=== PATIENT | male | born 1995 | race Caucasian/White ===

== ENCOUNTER 2018-08-23 15:07 | Inpatient (IN) | payer OTHER, MEDICAID ==
--- NOTE | 2018-08-23 16:26 | ED ---
Psychiatric Complaint - HPI Summary HPI Summary: A 23 y/o male presents to [facility] with a chief complaint of SI since yesterday. The patient reports that he drank EtOH with the intent of suicide and was planning on taking pills but didn't. He has a Hx of depression and has had several suicide attempts since 16 y/o. He reports that his boss sent him home today and then he went to mental health at [place] when he was referred to the ED for a MHE. - History Of Current Complaint Chief Complaint: EDSuicidal Time Seen by Provider: 08/23/18 16:01 Hx Obtained From: Patient Onset/Duration: Sudden Onset, Lasting Days, Still Present Timing: Constant Severity Initially: Mild Severity Currently: Mild Character: Depressed Aggravating Factor(s): Nothing Alleviating Factor(s): Nothing Associated Signs And Symptoms: Positive: Negative Related History: Positive For: Prior Psychiatric Issues Has Suicidal: Reports: Thoughts, With A Plan, Demonstrates Gesture, Has Prior Attempt(s) Has Homicidal: Denies: Thoughts Ingestion History: Type/Name Of Drug - EtOH - Allergies/Home Medications Allergies/Adverse Reactions: Allergies Allergy/AdvReac Type Severity Reaction Status Date / Time No Known Allergies Allergy Verified 08/23/18 15:17 PMH/Surg Hx/FS Hx/Imm Hx Infectious Disease History: Denies: Traveled Outside the [place] in Last 30 Days - Family History Known Family History: Negative: Blood Disorder - Social History Lives: With Family Alcohol Use: Binge use [employer] BRUSHER in suicide attempt Hx Substance Use: No Review of Systems Negative: Fever Psychological: Other - positive: SI Positive: Other - negative: HI All Other Systems Reviewed And Are Negative: Yes Physical Exam - Summary Physical Exam Summary: Appearance: Well appearing, no pain distress Skin: warm, dry, reflects adequate perfusion Head/face: normal Eyes: EOMI, RODNEY ENT: normal Neck: supple, non-tender Respiratory: CTA, breath sounds present Cardiovascular: RRR, pulses symmetrical Abdomen: non-tender, soft Musculoskeletal: normal, strength/ROM intact Neuro: normal, sensory motor intact, A&Ox3 Psych: Depressed affect Triage Information Reviewed: Yes Vital Signs On Initial Exam: Initial Vitals Temp Pulse Resp BP Pulse Ox 98.7 F 107 16 144/88 98 08/23/18 15:09 08/23/18 15:09 08/23/18 15:09 08/23/18 15:09 08/23/18 15:09 Vital Signs Reviewed: Yes Diagnostics - Vital Signs Vital Signs Temp Pulse Resp BP Pulse Ox 08/23/18 15:09 98.7 F 107 16 144/88 98 - Laboratory Result Diagrams: 08/23/18 16:27 08/23/18 16:27 Lab Statement: Any lab studies that have been ordered have been reviewed, and results considered in the medical decision making process. Re-Evaluation - Re-Evaluation First Eval Re-Evaluation Time: 19:40 Change: Unchanged Comment: Pt cleared for MHE. Course/Dx - Course Course Of Treatment: A 23 y/o male presents to [facility] with a chief complaint of SI since yesterday. The patient reports that he drank EtOH with the intent of suicide and was planning on taking pills but didn't. The physical exam revealed that the patient has a depressed affect. Bloodwork, chemistry, urines and toxicology obtained. The patient has been cleared for MHE. The patient will be signed out to Dr. Hui at 22:00 08/23/18 pending MHE. - Differential Dx/Clinical Impression Differential Diagnosis/HQI/PQRI: Positive: Depression, Suicidal Ideation Provider Diagnosis: Depression, Suicidal ideation Discharge - Sign-Out/Discharge Documenting (check all that apply): Sign-Out Patient Signing out patient TO: Tian Hui - pending MHE Patient Received Moderate/Deep Sedation with Procedure: No - Discharge Plan Condition: Stable Referrals: Edmundo KENT,Kendrick Desai [Primary Care Provider] - - Billing Disposition and Condition Condition: STABLE - Attestation Statements Document Initiated by Scribe: Yes Documenting Scribe: Ron Lemus Provider For Whom Mushtaq is Documenting (Include Credential): Alejandro Hennessy MD Scribe Attestation: Fatmata, Ron Lemus, scribed for Alejandro Hennessy MD on 08/23/18 at 2144. Scribe Documentation Reviewed: Yes Provider Attestation: The documentation as recorded by the Ron choi accurately reflects the service I personally performed and the decisions made by me, Alejandro Hennessy MD Status of Scribe Document: Viewed
[2018-08-23 16:30] LABS: Urine Appearance Cloudy; Urine Bilirubin Negative (Negative); Urine Blood Negative (Negative); Urine Color Yellow; Urine Glucose Negative (Negative); Urine Ketones Trace (Negative); Urine Nitrite Negative (Negative); Urine Protein Negative (Negative); Urine Urobilinogen Positive (Negative)
[2018-08-23 16:37] LABS: ABS Basophils 0.1 10^3/ul (0-0.2); ABS Eosinophils 0.3 10^3/ul (0-0.6); ABS Lymphocytes 2.8 10^3/ul (1.0-4.8); ABS Monocytes 0.8 10^3/ul (0-0.8); ABS Neutrophils 6.1 10^3/ul (1.5-7.7); ABS Nucleated RBC 0 10^3/ul; Eosinophil % 3.1 %; Hematocrit 45 % (36-46); Hemoglobin 15.8 g/dL (14.0-18.0); Mean Corpuscular HGB Conc 35 g/dL (31-36); Mean Corpuscular Hemoglobin 33 pg (27-31); Mean Corpuscular Volume 95 fL (80-94); Mean Platelet Volume 9.2 fL (7.4-10.4); Nucleated Red Blood Cells % 0.1; Platelet Count 151 10^3/uL (150-450); Red Blood Count 4.77 10^6 /uL (4.18-5.48); Red Cell Distribution Width 13 % (10.5-15); White Blood Count 10.1 10^3/uL (3.5-10.8)
[2018-08-23 16:45] LABS: Urine Benzodiazepine Screen None Detected (None Detect); Urine Opiates Screen None Detected (None Detect)
[2018-08-23 16:51] LABS: ALT 14 U/L (7-52); AST 13 U/L (13-39); Albumin 4.1 g/dL (3.2-5.2); Albumin/Globulin Ratio 1.5 (1-3); Alkaline Phosphatase 58 U/L (34-104); Anion Gap 7 mmol/L (2-11); BUN/Creatinine Ratio 19.4 (8-20); Blood Urea Nitrogen 19 mg/dL (6-24); CO2 Carbon Dioxide 27 mmol/L (22-32); Calcium 8.8 mg/dL (8.6-10.3); Chloride 108 mmol/L (101-111); EGFR African American 116.8 (>60); EGFR Non-African American 96.6 (>60); Globulin 2.8 g/dL (2-4); Glucose 106 mg/dL (70-100); Potassium 4.1 mmol/L (3.5-5.0); Sodium 142 mmol/L (135-145); Total Protein 6.9 g/dL (6.4-8.9)
[2018-08-23 17:04] LABS: Acetaminophen < 15 mcg/mL; Alcohol < 10 mg/dL (<10); Salicylate < 2.50 mg/dL (<30)
[2018-08-23 17:18] LABS: TSH (Thyroid Stimulating Horm) 0.82 mcIU/mL (0.34-5.60)
--- NOTE | 2018-08-23 22:09 | ED ---
Progress - Progress Note Progress Note: This patient is signed out from Dr. Hennessy at 2200 awaiting mental health evaluation. - Consult/PCP Time Called: 19:50 Course/Dx - Course Course Of Treatment: Mental health yeast washer informs of Dr. Young's recomentation to admit the patient at 2240. - Diagnoses Provider Diagnoses: Substance abuse, Mood disorder Discharge - Sign-Out/Discharge Documenting (check all that apply): Patient Departure - admit Patient Received Moderate/Deep Sedation with Procedure: No - Discharge Plan Condition: Stable [place] [place] Disposition and Condition Condition: STABLE Disposition[place] [facility] [place] Attestation Statements Document Initiated by Scribe: Yes Documenting Scribe: Umu Rosales Provider For Whom Mushtaq is Documenting (Include Credential): Tian Hui MD Scribe Attestation: Umu Avilez, scribed for Tian Hui MD on 08/24/18 at 0328. Scribe Documentation Reviewed: Yes Provider Attestation: The documentation as recorded by the Umu choi accurately reflects the service I personally performed and the decisions made by Tian nassar MD Status of Scribe Document: Viewed
[2018-08-24] MEDS ORDERED: Acetaminophen TAB* 325 MG PO PRN (01:06)
[2018-08-24] MEDS ORDERED: Al Hydrox/Mg Hydrox/Simet LIQ* 30 ML UDC PO PRN (01:06)
[2018-08-24] MEDS: Nicotine PATCH 21 MG/24 HR* PATCH TRANSDERM SCH (09:36)
[2018-08-24] MEDS: Vitamin THERAPEUTIC TAB PO SCH (09:36)
[2018-08-24] MEDS ORDERED: hydrOXYzine HCL TAB* 50 MG PO PRN (12:46)
--- NOTE | 2018-08-24 13:52 | HP ---
HISTORY AND PHYSICAL: DATE OF ADMISSION: 08/23/18 PROVIDER: Nemo Davis NP, in Psychiatry. SUPERVISING PHYSICIAN: Ildefonso Lizarraga MD* (dictated by Nemo Davis NP). JUSTIFICATION FOR ADMISSION: The patient is in need of 24-hour supervision and care secondary to suicidal ideation and suicide attempt interrupted. CHIEF COMPLAINT: "Something in my head just snapped, I need to get away from everything." HISTORY OF PRESENT ILLNESS: The patient is a 23-year-old single white male with a history of depression and substance abuse, who arrives, brought in by private car and is here on a voluntary status following an attempt to end his life by drinking a significant amount of alcohol and taking trazodone. He fell asleep before he could take the trazodone. Francisco states that he needs to get away from everything. He cares for his mother. His friends are not attentive to his needs. His family is not helping him and thus he feels like he has no support system. He has looked to others to help him with his own troubles, but those others are too busy. He is employed at [employer] and his boss asked him the day after he had attempted to end his life if he was doing alright. When Francisco explained what happened, his boss told him to go to the emergency room, after which point he was admitted to the [facility]. He is having trouble sleeping. He is not interested in much. He feels guilty for simply being alive. His energy is low. He cannot concentrate and he has suicidal ideation. He has attempted 7 times in his life. PAST PSYCHIATRIC HISTORY: He was admitted once when he was 16 years old in [place]. He states at that time that was the second time that he attempted to end his life. He took Wellbutrin and Concerta. He states "I and they resuscitated me on the way to [place]." His first attempt at suicide was at 14 years old and that was the day that his parents split up. He states he cut himself at that time. The third time he slit his wrist in 2017. He put a gun in his mouth, but did not pull the trigger. In 2017, he took too much trazodone and alcohol and slept for a long time and this attempt he was going to take the same thing, but take more trazodone and more alcohol. He passed out before he was able to take the trazodone. Previous psychiatric meds include Concerta, Wellbutrin, Prozac. It should be noted that he is also on methamphetamine a significant amount of the time and he smokes marijuana and drinks alcohol. TRAUMA HISTORY: He denies having traumatic background. He does indicate though that he gave himself what sounds like acute stress disorder after taking LSD and being "stuck" in a trip for a month and a half. He states that, that incidence stopped him from socializing and interacting with others and that was quite difficult and bizarre for him. SUBSTANCE ABUSE HISTORY: He does smoke cigarettes. He declines to have nicotine replacement therapy. He drinks alcohol. He uses methamphetamine. He uses marijuana. He has tried treatment in the past, but feels as though it is a waste of time because he is able to maintain a superficial stance and does not share what is truly happening to him or he feels not heard. PAST MEDICAL HISTORY: His primary care doctor is Dr. Wyatt at [facility]. 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 FAMILY HISTORY: Mom has had a cardiac arrest, kidney failure. She is an alcoholic. She is nonadherent to her medication schedule. She is diabetic. She has visiting nurse services once or twice a week for medications, going to the store and taking her to appointments. He has 2 siblings, twin older sisters and he states that they are useless. His mom and he use methamphetamine. Francisco started 3 years ago when he was 20 years old. He smokes it and snorts it, but he does not use needles. Dad lives nearby, but he does not speak to dad very much. Dad kicked out his mom around age 14. SOCIAL HISTORY: He was born nearby to [place]. He lives with his mom. He has 2 sisters who are twins and a dad who lives nearby as well. He denies kar abuse. He graduated from high school and he did start college, but could not finish it as he needed to get a full-time job. He lives with his mother. He is employed at [employer]. He has never been in the . He says his legal problems include speeding tickets and items of that level. REVIEW OF SYSTEMS: Francisco reports feeling alert. He denies shortness of breath, heat or cold intolerance, chest pain or abdominal pain. He denies neurological symptoms. He denies fevers or changes in weight. PHYSICAL EXAMINATION GENERAL APPEARANCE: Well appearing. No pain or distress. VITAL SIGNS: On 08/24/18 at 8:35, temperature was 98.5, pulse 84, respirations 16, O2 sat on room air 100%, blood pressure 126/72. HEENT: Head and face are normal. Eyes: EOMI. PERRL. ENT: Normal. NECK: Supple, nontender. RESPIRATORY: CTA. Breath sounds present. CARDIOVASCULAR: RRR. Pulses symmetrical. ABDOMEN: Nontender, soft. MUSCULOSKELETAL: Normal strength. Range of motion intact. NEURO: Normal sensory. Motor intact. Alert and oriented x4. SKIN: Warm and dry. Reflects adequate perfusion. LABORATORY DATA: Most are within normal limits. Exceptions include MCV high at 95, MCH high at 33, glucose is high at 106. Urine is positive for trace ketones and urobilinogen. Toxicology positive for amphetamines and cannabinoids. There is no alcohol detected at this time. MENTAL STATUS EXAMINATION: This is a somewhat short, obese man with red hair and a red guo, who is calm and cooperative while we are speaking. His speech is of a normal rate, tone, and volume. He is dysthymic. He has a generally superficial affect, but becomes tearful when he is prodded into speaking about what is really bothering him. His thought processes are logical. Thought content is free of delusions. He is not homicidal. He is suicidal, not having a plan on this unit, but still having thoughts. He is not having any hallucinations. His insight is good. His judgment is fair. He is alert and oriented x4. DIAGNOSES: 1. Major depressive disorder. 2. Amphetamine use disorder. 3. Alcohol use disorder. 4. Cannabis use disorder. IMPRESSION: Francisco is a 23-year-old single white man with large number of stressors and a limited ability to manage those stressors. In this context, he has determined that suicide is an adequate answer for these stressors and he has a variety of plans and has already attempted 7 times. PLAN: Francisco is admitted to the adult behavioral unit and placed on q.15-minute checks for his own safety. He is encouraged to participate in supportive milieu , individual, and group therapies. Estimated length of stay is 5 to 7 days. We may obtain an MMPI for diagnostic clarification. We will titrate medications to efficacy and monitor for mood and thought content. Discharge planning will include family involvement and outpatient providers. NEMO DAVIS NP [id number]/CPS #: [id number] SUNDEEP
[2018-08-24] MEDS: Escitalopram * 5 MG TAB PO SCH (15:40)
[2018-08-24] MEDS: Nicotine Patch Removal NOTE PATCH OFF SCH (21:39)
[2018-08-25] MEDS: Nicotine PATCH 21 MG/24 HR* PATCH TRANSDERM SCH ×2 (09:27→09:32)
[2018-08-25] MEDS: Vitamin THERAPEUTIC TAB PO SCH (09:27)
[2018-08-25] MEDS: Escitalopram * 5 MG TAB PO SCH (09:27)
--- NOTE | 2018-08-25 16:27 | PN ---
Subjective - Subjective Date of Service: 08/25/18 Service Type: 38874 Hosp care 25 min moderate complexity Subjective: Agustin attended at least one group and found it very helpful. He was encouraged to attend all activities offered on the unit. He states he feels free from anxiety and he isn't sure why, but wonders if it is because he is away from his stressors. We discussed anxiety level and when it is appropriate to take an antianxiety agent. We discussed the 0-10 scale and how to do a body scan. Agustin was receptive and appeared to try to apply this to his life as well as his drug use. Objective - General Observations Appearance: Neat Appears Stated Age: No - older Stature: Overweight Posture: WNL Eye Contact: Average Behavior/Activity: WNL - Interaction Observations Attitude Towards Examiner: Cooperative Stated Mood: Euthymic Affect: Restricted Speech Pattern/Tone: Clear Thought Process: Coherent Perception: WNL Thought Content: WNL, Preoccupation/Ruminations Thought Process: Lethality: Passive Wish Hallucination Type: None Delusion Type: None - Cognitive Function Orientation: A&O x 4 Level of Consciousness: Awake, Alert, Appropriate Cognition: WNL, Impaired Attention/Concentration Estimated Intelligence: Normal Insight: Difficulty Acknowledging Presence of Psyciatric Problems Judgment Within Normal Limits: No Ability to Make Reasonable Decisions: Mildly Impaired - Medication Compliance Cooperative with Inpatient Medication Regimen: Yes - Group Participation Participates in Group Activities: Partial Assessment - Assessment Merits Inpatient Hospitalization: For Immediate Safety Clinical Impression: Agustin is a 23-year-old white male who comes to the hospital with suicidal ideation related to drug use and outside stressors as well as lack of support that he cannot yet manage effectively. Plan - Plan Treatment Plan: Name: AGUSTIN DOWD Birthdate: 1995 [id number] Start Lexapro 5 mg. Encourage groups. Continue to encourage socialization. Continued Medication Management: Different Medication Medications: Current Medications Acetaminophen (Tylenol Tab*) 650 mg PO Q4H PRN PRN Reason: PAIN or TEMP > 101 F Al Hydrox/Mg Hydrox/Simethicone (Maalox Plus*) 30 ml PO Q4H PRN PRN Reason: INDIGESTION Escitalopram Oxalate (Lexapro *) 5 mg PO DAILY [facility] Last Admin: 08/25/18 09:27 Dose: 5 mg Hydroxyzine HCl (Atarax Tab*) 50 mg PO Q6H PRN PRN Reason: anxiety/agitation Multivitamins (Theragran Tab*) 1 tab PO DAILY [facility] Last Admin: 08/25/18 09:27 Dose: 1 tab Nicotine (Nicotine Patch 21 Mg/24 Hr*) 1 patch TRANSDERM DAILY [facility] Last Admin: 08/25/18 09:32 Dose: Not Given Nicotine Polacrilex (Nicotine Gum*) 2 mg PO Q2H PRN PRN Reason: CRAVING Pharmacy Profile Note (Nicotine Patch Removal Note*) 1 note PATCH OFF 2100 [facility] Last Admin: 08/24/18 21:39 Dose: Not Given - Discharge Plan Discharge Plan: Outpatient Follow Up
[2018-08-25] MEDS: Nicotine Patch Removal NOTE PATCH OFF SCH (19:50)
[2018-08-26] MEDS: Escitalopram * 5 MG TAB PO SCH (10:24)
[2018-08-26] MEDS: Nicotine PATCH 21 MG/24 HR* PATCH TRANSDERM SCH (10:24)
[2018-08-26] MEDS: Vitamin THERAPEUTIC TAB PO SCH (10:24)
[2018-08-26] MEDS: Nicotine GUM* 2 MG PO PRN (13:46)
[2018-08-26] MEDS: Nicotine Patch Removal NOTE PATCH OFF SCH (19:08)
[2018-08-27] MEDS: Vitamin THERAPEUTIC TAB PO SCH (12:10)
[2018-08-27] MEDS: Escitalopram * 5 MG TAB PO SCH (12:10)
[2018-08-27] MEDS: Nicotine PATCH 21 MG/24 HR* PATCH TRANSDERM SCH (12:11)
[2018-08-27] MEDS: Nicotine GUM* 2 MG PO PRN ×2 (12:22→17:32)
--- NOTE | 2018-08-27 17:32 | PN ---
Subjective - Subjective Date of Service: 08/27/18 Service Type: 23777 Hosp care 15 min low complexity Subjective: Agustin says he is having a good day today and active with peers. He talks about all his problems leading up to repeated suicide attempts but hasitant to accept drinking as the main issue. Today denies any SI,HI or psychosis. Objective - General Observations Appearance: Well Groomed Appears Stated Age: Yes Stature: WNL Posture: WNL Eye Contact: Average Behavior/Activity: WNL - Interaction Observations Attitude Towards Examiner: Cooperative Stated Mood: Euthymic Affect: Full Speech Pattern/Tone: Clear, Appropriate, Normal Volume Thought Process: Coherent, Goal Directed Perception: WNL Thought Content: WNL Hallucination Type: None Delusion Type: None - Cognitive Function Orientation: A&O x 4 Level of Consciousness: Awake, Alert Cognition: WNL Estimated Intelligence: Normal Insight: Mostly Blames Others for Problems Judgment Within Normal Limits: No Ability to Make Reasonable Decisions: Serverely Impaired - Medication Compliance Cooperative with Inpatient Medication Regimen: Yes - Group Participation Participates in Group Activities: Yes Assessment - Assessment Merits Inpatient Hospitalization: For Discharge Planning Clinical Impression: Agustin is a 23-year-old white male who comes to the hospital with suicidal ideation related to drug use and outside stressors as well as lack of support that he cannot yet manage effectively. Plan - Plan Treatment Plan: Name: AGUSTIN DOWD Birthdate: 1995 [id number] Start Lexapro 5 mg. Encourage groups. Continue to encourage socialization. Continued Medication Management: Continue Outpt Medication Medications: Current Medications Acetaminophen (Tylenol Tab*) 650 mg PO Q4H PRN PRN Reason: PAIN or TEMP > 101 F Al Hydrox/Mg Hydrox/Simethicone (Maalox Plus*) 30 ml PO Q4H PRN PRN Reason: INDIGESTION Escitalopram Oxalate (Lexapro *) 5 mg PO DAILY [facility] Last Admin: 08/27/18 12:10 Dose: 5 mg Hydroxyzine HCl (Atarax Tab*) 50 mg PO Q6H PRN PRN Reason: anxiety/agitation Multivitamins (Theragran Tab*) 1 tab PO DAILY [facility] Last Admin: 08/27/18 12:10 Dose: 1 tab Nicotine (Nicotine Patch 21 Mg/24 Hr*) 1 patch TRANSDERM DAILY [facility] Last Admin: 08/27/18 12:11 Dose: Not Given Nicotine Polacrilex (Nicotine Gum*) 2 mg PO Q2H PRN PRN Reason: CRAVING Last Admin: 08/27/18 12:22 Dose: 2 mg Pharmacy Profile Note (Nicotine Patch Removal Note*) 1 note PATCH OFF 2100 [facility] Last Admin: 08/26/18 19:08 Dose: Not Given - Discharge Plan Discharge Plan: Drug/Alcohol Rehab
[2018-08-27] MEDS: Nicotine Patch Removal NOTE PATCH OFF SCH (20:56)
[2018-08-28] MEDS: Nicotine PATCH 21 MG/24 HR* PATCH TRANSDERM SCH (12:44)
[2018-08-28] MEDS: Escitalopram * 5 MG TAB PO SCH ×2 (12:44→14:14)
[2018-08-28] MEDS: Vitamin THERAPEUTIC TAB PO SCH (12:44)
[2018-08-28] MEDS: Nicotine GUM* 2 MG PO PRN ×2 (14:14→20:23)
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
[2018-08-28] MEDS: Nicotine Patch Removal NOTE PATCH OFF SCH (20:23)
[2018-08-29] MEDS: Nicotine PATCH 21 MG/24 HR* PATCH TRANSDERM SCH (09:51)
[2018-08-29] MEDS: Escitalopram * 5 MG TAB PO SCH (09:52)
[2018-08-29] MEDS: Vitamin THERAPEUTIC TAB PO SCH (09:52)
[2018-08-29] MEDS: Nicotine GUM* 2 MG PO PRN ×2 (11:40→17:38)
--- NOTE | 2018-08-29 15:05 | PN ---
Subjective - Subjective Date of Service: 08/29/18 Service Type: 70380 Hosp care 35 min high complexity Subjective: I met with Francisco as well as Deanna Haile [employer]ACHINE, and Guzman Amezquita, PhD, to discuss with Francisco his diagnosis and likely future plans. Francisco has attempted suicide at least 7 times since age 14 and he acknowledges that he is behaving in an uncharacteristic fashion for someone who has recently stopped using methamphetamine (we expected him to crash and sleep; rather he is up until 0300 listening to music with other peers and sleeping in the morning). Further, his MMPI reflects impulsivity and hypomania. I am diagnosing him with bipolar 1 disorder and unreservedly starting lithium 300 mg BID to address mood dysregulation and impulsivity. We also had a family meeting with Francisco and his father, Hector. Hector is moved and saddened by his son's distress and is supportive and offers for Francisco to at least temporarily move in with him. Francisco is tearful during the meeting. A lot of information regarding his diagnosis of bipolar 1 disorder is shared as well as logistical information regarding where he will live and where he will get care. We emphasize the need for Francisco to stay a few more days due to his high level of impulsivity (confirmed by the MMPI performed) and the start of lithium , which will be titrated over a few days. Objective - General Observations Appearance: Disheveled Appears Stated Age: Yes Stature: Overweight Posture: WNL Eye Contact: Average Behavior/Activity: WNL - Interaction Observations Attitude Towards Examiner: Cooperative Stated Mood: Dysphoric, Anxious Affect: Labile Speech Pattern/Tone: Clear Thought Process: Coherent Perception: WNL Thought Content: WNL Hallucination Type: None Delusion Type: None - Cognitive Function Orientation: A&O x 4 Level of Consciousness: Awake, Alert, Appropriate Cognition: WNL Estimated Intelligence: Normal Insight: WNL Judgment Within Normal Limits: No Ability to Make Reasonable Decisions: Mildly Impaired - Medication Compliance Cooperative with Inpatient Medication Regimen: Yes - Group Participation Participates in Group Activities: Partial Assessment - Assessment Merits Inpatient Hospitalization: For Immediate Safety Inpatient DSM-V Dx: F31.63 Clinical Impression: Francisco is a 23-year-old white male who comes to the hospital with suicidal ideation related to drug use and outside stressors as well as lack of support that he cannot yet manage effectively. Plan - Plan Treatment Plan: Name: FRANCISCO DOWD Birthdate: 1995 [id number] Start Lexapro 5 mg. Encourage groups. Continue to encourage socialization. 08/28/18 Francisco will complete the MMPI. His mood will continue to be assessed as he is surprisingly excited to be with others. 08/29/18 Francisco's MMPI indicated a direction toward hypomania and impulsivity. In response to this and the possible bipolar diagnosis, we will start lithium 300 mg BID. Continued Medication Management: Start Medication Medications: Current Medications Acetaminophen (Tylenol Tab*) 650 mg PO Q4H PRN PRN Reason: PAIN or TEMP > 101 F Al Hydrox/Mg Hydrox/Simethicone (Maalox Plus*) 30 ml PO Q4H PRN PRN Reason: INDIGESTION Hydroxyzine HCl (Atarax Tab*) 50 mg PO Q6H PRN PRN Reason: anxiety/agitation [place] Carbonate (Allgood Carbonate Tab*) 300 mg PO BID [facility] Multivitamins (Theragran Tab*) 1 tab PO DAILY [facility] Last Admin: 08/29/18 09:52 Dose: 1 tab Nicotine (Nicotine Patch 21 Mg/24 Hr*) 1 patch TRANSDERM DAILY [facility] Last Admin: 08/29/18 09:51 Dose: Not Given Nicotine Polacrilex (Nicotine Gum*) 2 mg PO Q2H PRN PRN Reason: CRAVING Last Admin: 08/29/18 11:40 Dose: 2 mg Pharmacy Profile Note (Nicotine Patch Removal Note*) 1 note PATCH OFF 2100 [facility] Last Admin: 08/28/18 20:23 Dose: Not Given - Discharge Plan Discharge Plan: Outpatient Follow Up
--- NOTE | 2018-08-29 16:33 | CONS ---
PSYCHOLOGICAL REPORT: DATE OF CONSULT: 08/29/18 PROCEDURE CODE: [id number]. REASON FOR REFERRAL: Francisco was referred for personality testing secondary to concerns regarding levels of depression as well as affective instability. Francisco reports having made 7 prior suicide attempts. TEST ADMINISTERED: Francisco completed the [place] Multiphasic Personality Inventory- 2 (MMPI-2) and was given feedback in conversation including both he and treatment team members including his nurse practitioner and social science professor. RELEVANT HISTORY: Francisco describes having experienced suicidal ideation where he had been actively planning to engage in an overdose attempt, but instead had apparently fallen asleep before taking his prescribed trazodone pills. This occurred in the context of heavy drinking and he fell asleep before taking the pills. He describes rather intractable family duress beginning at the age of 14 when he first had attempted suicide when his parents broke up and his mother was sent to a rehab. Francisco described how this set of family dynamics in place where he went with his mother and his sisters went with his father. He describes how he had been engaged in using methamphetamine along with his mother and how they had engaged in a codependent relationship. He is currently disinclined to return home to live with his mother and expects to be homeless after his discharge if he is not able to secure housing while remaining in the hospital. 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 He had prior psychiatric admissions in [place] where at one point he needed to resuscitated after having ingested Wellbutrin and Concerta pills. He is also engaged in cutting himself on at least two other occasions and on a different occasion had put a gun in his mouth, but did not pull the trigger. Francisco describes having made three suicide attempts in 1 year 3 years ago. He had been prescribed Lexapro recently, which he was complaint with, which may in part have contributed to current manic difficulties. TEST RESULTS: Francisco provides what is felt to be a valid protocol on this administration of the MMPI-2 despite a very profound elevation occurring on one validity scale indicator FB scale (T=100), which is indicative of endorsement of fair amount of cynical and pessimistic thoughts and beliefs. However, on clinical indices, he has minor elevation psychopathic deviate scale and higher elevation occurring on hypomania scale (T=75). This in combination is descriptive of persons who typically are diagnosed with an affective instability , particularly bipolar 1 disorder seems evident, particularly as he does not elevate depression scale. Concerns are consistent with affective instability, which appears to lead to impulsive and at times lethal behavior for Francisco. Discussion with Francisco emphasized the importance of initiating mood stabilization including prescriptions of lithium. 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 IMPRESSION AND RECOMMENDATIONS: Francisco also describes struggling with Lyme disease, which may be a complicating factor. He impresses as having good insight regarding decision making at the present time, describing how. He needs to attain independent living in order to effectively change lifestyle choices. He impresses as being well motivated to maintain employment and is hopeful of beginning to make healthy lifestyle choices. Francisco is pleasant in conservation and is spontaneous in speech. His thinking currently is clear and coherent, and he does not evidence any physical agitation. Diagnostic consideration indicates bipolar 1 disorder, which may be complicated by amphetamine use disorder as well as alcohol and marijuana use as well. Francisco impresses as being interested and able in attending to lifestyle choices currently that hopefully will help him be more successful and free from suicidal ideation and impulsive behavior. [id number]/[facility] #: [id number] SUNDEEP
[2018-08-29] MEDS: Nicotine Patch Removal NOTE PATCH OFF SCH (21:25)
[2018-08-29] MEDS: Lithium Carbonate TAB* 300 MG PO SCH (21:25)
[2018-08-30] MEDS: Lithium Carbonate TAB* 300 MG PO SCH ×2 (09:32→20:58)
[2018-08-30] MEDS: Vitamin THERAPEUTIC TAB PO SCH (09:32)
[2018-08-30] MEDS: Nicotine PATCH 21 MG/24 HR* PATCH TRANSDERM SCH (09:32)
[2018-08-30] MEDS: Nicotine GUM* 2 MG PO PRN ×2 (09:33→19:11)
--- NOTE | 2018-08-30 16:33 | PN ---
Subjective - Subjective Date of Service: 08/30/18 Service Type: 32674 Hosp care 15 min low complexity Subjective: Agustin is found in bed. He has not been participating as much as I would like to see. He reports that he feels "weird" in his head. He is tolerating the lithium well, but feels like it is responsible for making him feel what appears to be sad and dysphoric. It is likely that he has not experienced this state of mind in a sober setting. Objective - General Observations Appearance: Disheveled Appears Stated Age: Yes Stature: Overweight Posture: WNL Eye Contact: Avoidant Behavior/Activity: WNL - Interaction Observations Attitude Towards Examiner: Cooperative Stated Mood: Dysphoric Affect: Blunted Speech Pattern/Tone: Clear Thought Process: Coherent, Circumstantial Perception: WNL Thought Content: WNL Hallucination Type: None Delusion Type: None - Cognitive Function Orientation: A&O x 4 Level of Consciousness: Awake, Alert, Appropriate Cognition: WNL Estimated Intelligence: Normal Insight: WNL Judgment Within Normal Limits: Yes - Medication Compliance Cooperative with Inpatient Medication Regimen: Yes - Group Participation Participates in Group Activities: No Assessment - Assessment Merits Inpatient Hospitalization: For Immediate Safety, For Discharge Planning Inpatient DSM-V Dx: F31.63 Clinical Impression: Agustin is a 23-year-old white male who comes to the hospital with suicidal ideation related to drug use and outside stressors as well as lack of support that he cannot yet manage effectively. Plan - Plan Treatment Plan: Name: AGUSTIN DOWD Birthdate: 1995 [id number] Start Lexapro 5 mg. Encourage groups. Continue to encourage socialization. 08/28/18 Agustin will complete the MMPI. His mood will continue to be assessed as he is surprisingly excited to be with others. 08/29/18 Agustin's MMPI indicated a direction toward hypomania and impulsivity. In response to this and the possible bipolar diagnosis, we will start lithium 300 mg BID. 08/30/18 As Agustin was tolerating the dose of lithium at 300 mg BID, we increase it to 300 QAM and 600 QHS and plan a blood draw for Tuesday morning. Continued Medication Management: Different Medication Medications: Current Medications Acetaminophen (Tylenol Tab*) 650 mg PO Q4H PRN PRN Reason: PAIN or TEMP > 101 F Al Hydrox/Mg Hydrox/Simethicone (Maalox Plus*) 30 ml PO Q4H PRN PRN Reason: INDIGESTION Hydroxyzine HCl (Atarax Tab*) 50 mg PO Q6H PRN PRN Reason: anxiety/agitation [place] Carbonate ([place] Carbonate Tab*) 300 mg PO BID [facility] Last Admin: 08/30/18 09:32 Dose: 300 mg Multivitamins (Theragran Tab*) 1 tab PO DAILY [facility] Last Admin: 08/30/18 09:32 Dose: 1 tab Nicotine (Nicotine Patch 21 Mg/24 Hr*) 1 patch TRANSDERM DAILY [facility] Last Admin: 08/30/18 09:32 Dose: Not Given Nicotine Polacrilex (Nicotine Gum*) 2 mg PO Q2H PRN PRN Reason: CRAVING Last Admin: 08/30/18 09:33 Dose: 2 mg Pharmacy Profile Note (Nicotine Patch Removal Note*) 1 note PATCH OFF 2100 [facility] Last Admin: 08/29/18 21:25 Dose: Not Given - Discharge Plan Discharge Plan: Outpatient Follow Up
[2018-08-30] MEDS: Nicotine Patch Removal NOTE PATCH OFF SCH (20:59)
[2018-08-31] MEDS ORDERED: Lithium Carbonate TAB* 300 MG PO SCH ×2 (09:00→10:11)
[2018-08-31] MEDS: Vitamin THERAPEUTIC TAB PO SCH (10:35)
[2018-08-31] MEDS: Nicotine PATCH 21 MG/24 HR* PATCH TRANSDERM SCH (10:38)
[2018-08-31] MEDS ORDERED: Lithium Carbonate TAB* 300 MG PO ONE (11:00)
[2018-08-31] MEDS: Nicotine GUM* 2 MG PO PRN (18:12)
[2018-08-31] MEDS: Lithium Carbonate TAB* 300 MG PO SCH (20:35)
[2018-08-31] MEDS: Nicotine Patch Removal NOTE PATCH OFF SCH (20:47)
[2018-09-01 09:43] VITALS: BP 104/75
[2018-09-01] MEDS: Nicotine PATCH 21 MG/24 HR* PATCH TRANSDERM SCH (10:03)
[2018-09-01] MEDS: Vitamin THERAPEUTIC TAB PO SCH (10:03)
[2018-09-01] MEDS: Nicotine GUM* 2 MG PO PRN (12:23)
--- NOTE | 2018-09-02 20:51 | DS ---
CC: [facility]; [facility]; Dr. Wyatt * DISCHARGE SUMMARY: DATE OF ADMISSION: 08/23/18 DATE OF DISCHARGE: 09/01/18 PROVIDER: Nemo Davis NP in Psychiatry. SUPERVISING PHYSICIAN: Dr. 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 CONDITION AT THE TIME OF DISCHARGE: Francisco is improved. He is psychiatrically cleared, stable, and participated in groups at times and was very social with peers. His father is agreeable to discharge. He has done well here psychiatrically. He tolerated new medications including lithium well. He will be attending [facility]. He is also referred to [facility] as well as Dr. Kendrick Wyatt. MENTAL STATUS EXAM: At the time of discharge, Francisco is calm, cooperative; although anxious; and makes good eye contact. He is alert and oriented x4. His grooming is good. His speech pace is normal. His thought processes are logical. He is not psychotic or delusional. He denies AH, VH, SI, and HI. His insight is good. His judgment is fair. He is willing to follow up and he is urged to see his therapist. DISCHARGE INSTRUCTIONS TO THE PATIENT: A. Medications: [place] carbonate 300 mg in the morning, 600 mg at bedtime. He is also prescribed nicotine gum 2 mg q.2 hours, dispensed 200 pieces of gum, and nicotine patches at 21 mg per day. B. Diet is regular. C. Activities as tolerated. He is a smoker and he has been referred to the [facility] Smokers Quit Line at this time. If he decides to access this free service in the future, he can contact the quit line toll free at [phone]. There are no studies pending at the time of discharge. D. Followup care. He has appointments with [facility] on 09/05/18, at 11 a.m. He also has been referred to [facility] on 09/04/18 at 10 a.m. and he has been referred to Dr. Kendrick Wyatt of [place] for primary care followup. E. Disposition: Francisco is going home to his father's house rather than the place where he was living to improve safety and supervision. F. Substance abuse followup. He has been referred to [facility] for outpatient treatment. HOSPITAL COURSE: Part A. Chief Complaint: "Something in my head just snapped. I need to get away from everything." The patient is a 23-year-old single white male with a history of depression and substance abuse who arrives brought in by private car and is here on a voluntary status following an attempt to end his life by drinking a significant amount of alcohol and taking trazodone. He fell asleep before he could take the trazodone. Francisco states that he needs to get away from everything. He cares for his mother. His friends are not attentive to his needs. His family is not helping him and thus, he feels that he has no support system. He has looked to others to help him with his own troubles, but those others are too busy. He is employed at [employer] and his boss asked him the day after he attempted to end his life if he was doing alright. When Francisco explained what happened, his boss told him to go to the emergency room, after which point he was admitted to the [facility]. He is having trouble sleeping. He is not interested in much. He feels guilty for simply being alive. His energy is low. He cannot concentrate and he has suicidal ideation. He has attempted 7 times in his life. Part B. Psychiatric treatment was rendered. Francisco was admitted to the adult behavioral unit and placed on 15-minute checks for safety. He did advance to 30 - minute checks and staff pass privileges. Francisco did well on the unit and went to groups at times, although he was found sleeping in the afternoons as well. He interacted with peers well and in some cases, this indicated a small level of indiscrete conversations. He tolerated the addition of lithium well. He also did not complain of nicotine withdrawal; nevertheless, I did prescribe nicotine replacement for him. [place] was started, increased from 300 b.i.d. to 300 in the morning and 600 in the evening. His lithium level was not therapeutic upon discharge, but it had also only been a few days since he had started. His lithium level on 09/01/18 at 6:00 in the morning was 0.43. He was not on any medications from home. He is not on an antipsychotic. We did have a family meeting with his father, Chad. Griggsd was quiet, but attentive and clearly supportive and concerned about his son's well being. He offered to have Francisco live with him at his house in order to keep him in a safer place away from drugs and alcohol and to help him transition to a new lifestyle. No consults were entered for Francisco. He is significantly improved. He no longer has suicidal ideations. He is happier, although feeling as if he is coming down from a manic episode, which indeed he may be. His disorder is better characterized at this time as a mixed episode as he had significant irritability , frustration, and anger as well as despair and lack of energy. NEMO DAVIS, DRAKE [id number]/[facility] #: [id number] SUNDEEP
== END 2018-09-01 16:09 | disposition home or self-care (01) | DRG 885 ==
LOC: ED 15:07 → BSU 22:30 → ED 08-24 00:12
PROVIDERS: ADMIT Psychiatry & Neurology Psychiatry; ATTEND Psychiatry & Neurology Psychiatry
DX: F31.63 Bipolar disorder, current episode mixed, severe, without psychotic features (principal); R45.851 Suicidal ideations; F12.188 Cannabis abuse with other cannabis-induced disorder; E66.9 Obesity, unspecified; F17.210 Nicotine dependence, cigarettes, uncomplicated; F15.14 Other stimulant abuse with stimulant-induced mood disorder; Z81.1 Family history of alcohol abuse and dependence; Z82.49 Family history of ischemic heart disease and other diseases of the circulatory system; Z84.1 Family history of disorders of kidney and ureter; Z72.89 Other problems related to lifestyle; Z68.38 Body mass index [BMI] 38.0-38.9, adult
CPT/HCPCS: 36415; 80053; 80178; 80307; 80320; 80329; 81003; 84443; 85025; 96130; 99222; 99231; 99232; 99233; 99238; 99285; A9270-GY; G0480